=== PATIENT | male | born 1980 | race Caucasian/White ===

== ENCOUNTER 2016-07-23 20:59 | Emergency (ER) | payer MEDICAID ==
[~2016-07-23] VITALS: Ht 177.8 cm; Wt 60.0 kg
[~2016-07-23 20:59] MED LIST: AMOX500T PO; FOLI-17 PO; FURO-92 PO; MAGN400T7 PO; MULT1TAB60 PO; NICO1PAT10 TD; NITR100C6 PO; OMEP-110 PO; PRED5TAB PO; RIFA550T PO; SPIR50TA2 PO; THIA100T10 PO
[2016-07-23] MEDS ORDERED: PLEASE ENTER HEIGHT AND WEIGHT MC SCH (21:30)
[2016-07-23] MEDS ORDERED: MAALOX/HYOSCYAMINE/LIDOCAINE 45 ML BOTTLE PO ONE (21:30)
[2016-07-23] MEDS ORDERED: ONDANSETRON ODT 4 MG PO ONE (21:30)
[2016-07-23 21:36] LABS: ASPARTATE AMINO TRANSFERASE 191 U/L (15-37); BLOOD UREA NITROGEN 9 mg/dL (7-18)
[2016-07-23] MEDS ORDERED: MAALOX/HYOSCYAMINE/LIDOCAINE 45 ML BOTTLE ONE (22:21)
[2016-07-23] MEDS ORDERED: ONDANSETRON ODT 4 MG ONE (22:22)
[2016-07-24 03:07] VITALS: BP 122/68
== END 2016-07-24 03:09 | disposition home or self-care (01) ==
LOC: ED 22:46
DX: R10.13 Epigastric pain (principal); K29.20 Alcoholic gastritis without bleeding; F10.20 Alcohol dependence, uncomplicated; Z72.89 Other problems related to lifestyle; F17.210 Nicotine dependence, cigarettes, uncomplicated; D69.6 Thrombocytopenia, unspecified
CPT/HCPCS: 36415; 80053; 80307; 83690; 85025; 99284; Q0162

== ENCOUNTER 2016-08-31 20:55 | Emergency (ER) | payer MEDICAID ==
[~2016-08-31] VITALS: Ht 167.6 cm; Wt 73.0 kg
[2016-09-01 02:14] VITALS: BP 133/87
== END 2016-09-01 02:16 | disposition home or self-care (01) ==
LOC: ED 21:24
DX: F10.120 Alcohol abuse with intoxication, uncomplicated (principal); I10 Essential (primary) hypertension; K75.9 Inflammatory liver disease, unspecified; I95.9 Hypotension, unspecified; D69.6 Thrombocytopenia, unspecified
CPT/HCPCS: 99283

== ENCOUNTER 2016-11-14 01:17 | Emergency (ER) | payer MEDICAID ==
[~2016-11-14] VITALS: Ht 170.2 cm; Wt 65.0 kg
[~2016-11-14 01:17] MED LIST changes: -RIFA550T PO; +RIFA550T4 PO
[2016-11-14 01:25] VITALS: BP 106/66
== END 2016-11-14 05:06 | disposition home or self-care (01) ==
LOC: ED 02:25
DX: F10.129 Alcohol abuse with intoxication, unspecified (principal); I10 Essential (primary) hypertension
CPT/HCPCS: 99283

== ENCOUNTER 2018-08-31 22:17 | Emergency (ER) | payer MEDICAID ==
[~2018-08-31] VITALS: Ht 152.4 cm; Wt 55.3 kg
[~2018-08-31 22:17] MED LIST changes: +NICO-485 TD; -NICO1PAT10 TD; -SPIR50TA2 PO; +SPIR50TA4 PO
--- NOTE | 2018-08-31 22:32 | NUR ---
FIRST CONTACT WITH PT. PT HERE STATING THAT HE HAS BEEN HAVING MAJOR STOMACH ACHES FOR TWO MONTHS, STATES THAT HE WAS VOMITING, DRANK 10 BEERS TONIGHT. STATES THAT HE HAS BEEN UNABLE TO HOLD DOWN ANYTHING FOR SEVERAL MONTHS, WAS ABLE TO KEEP BEERS DOWN BUT THAT WAS "HARD". PT'S AOX4. RESPS EVEN AND UNLABORED. BP/SPO2 MONITORS IN PLACE. CALL LIGHT WITHIN REACH.
[2018-08-31] MEDS ORDERED: ONDANSETRON 2MG/ML, 2ML ONE (22:58)
[2018-08-31] MEDS ORDERED: LORazepam 2 MG/ML, 1ML ONE (22:58)
[2018-08-31] MEDS ORDERED: THIAMINE 100 MG/ML, 2ML ONE (22:58)
[2018-08-31] MEDS ORDERED: LACTATED RINGERS 1,000 ML IVBOLUS ONE (23:00)
[2018-08-31] MEDS ORDERED: SODIUM CHLORIDE FLUSH 10ML SYR IVF ONE (23:00)
[2018-08-31] MEDS ORDERED: THIAMINE 100 MG/ML, 2ML IM ONE (23:00)
[2018-08-31] MEDS ORDERED: LORazepam 2 MG/ML, 1ML IVPush ONE (23:00)
[2018-08-31] MEDS ORDERED: ONDANSETRON 2MG/ML, 2ML IVPush ONE (23:00)
[2018-08-31 23:08] LABS: BASOPHILS # (AUTO) 0.03 x10^3/uL (0-0.1); BASOPHILS % (AUTO) 1 % (0-1); EOSINOPHILS # (AUTO) 0.03 x10^3/uL (0-0.4); EOSINOPHILS % (AUTO) 1 % (1-7); LYMPHOCYTES # (AUTO) 1.52 x10^3/uL (1-3.4); LYMPHOCYTES % (AUTO) 30 % (22-44); MD NO; MEAN CORPUSCULAR HEMOGLOBIN 33.6 pg (27.5-34.5); MEAN CORPUSCULAR HGB CONC 33.3 g/dL (33.2-36.2); MEAN CORPUSCULAR VOLUME 100.8 fL (81-97); MEAN PLATELET VOLUME 8.9 fL (7.4-10.4); MONOCYTES # (AUTO) 0.66 x10^3/uL (0.2-0.8); MONOCYTES % (AUTO) 13 % (2-9); NEUTROPHILS # (AUTO) 2.87 x10^3/uL (1.8-6.8); NEUTROPHILS % (AUTO) 56 % (42-75); PLATELET COUNT 160 x10^3/uL (130-400); RED CELL DISTRIBUTION WIDTH 18.9 % (9.4-14.8)
--- NOTE | 2018-08-31 23:14 | NUR ---
MED ORDERED FROM PHARMACY NOW.
--- NOTE | 2018-08-31 23:14 | NUR ---
EKG DONE BY EMT
[2018-08-31 23:20] LABS: ALANINE AMINOTRANSFERASE 85 U/L (12-78); ALBUMIN 3.4 g/dL (3.4-5.0); ANION GAP 12 mmol/L (5-15); CALCIUM 8.2 mg/dL (8.5-10.1); CHLORIDE 85 mmol/L (98-107); CREATININE 0.93 mg/dL (0.7-1.3)
[2018-08-31 23:22] LABS: ALKALINE PHOSPHATASE 100 U/L (45-117); TOTAL PROTEIN 8.3 g/dL (6.4-8.2)
[2018-08-31 23:28] VITALS: BP 127/77
--- NOTE | 2018-08-31 23:28 | NUR ---
PT MEDICATED PER EMAR. PT TOLERATED WELL.
--- NOTE | 2018-08-31 23:40 | NUR ---
LR INFUSING AT THIS TIME. PT TOLERATED WELL.
== END 2018-09-01 00:16 | disposition home or self-care (01) ==
LOC: ED 22:30
DX: F10.220 Alcohol dependence with intoxication, uncomplicated (principal); R11.2 Nausea with vomiting, unspecified; E87.1 Hypo-osmolality and hyponatremia; R94.5 Abnormal results of liver function studies; Y90.9 Presence of alcohol in blood, level not specified
CPT/HCPCS: 36415; 80053; 83690; 85025; 93005; 96361; 96372; 96374; 96375; 99284; J2060; J2405; J3411; J7120

== ENCOUNTER 2018-09-20 07:48 | Emergency (ER) | payer MEDICAID ==
[~2018-09-20] VITALS: Ht 152.4 cm; Wt 53.9 kg
[2018-09-20 14:20] VITALS: BP 101/63
== END 2018-09-20 14:30 | disposition home or self-care (01) ==
LOC: ED 10:17
DX: K52.9 Noninfective gastroenteritis and colitis, unspecified (principal); E86.9 Volume depletion, unspecified; E87.6 Hypokalemia; I10 Essential (primary) hypertension; K21.9 Gastro-esophageal reflux disease without esophagitis; F10.220 Alcohol dependence with intoxication, uncomplicated; Y90.0 Blood alcohol level of less than 20 mg/100 ml; Z87.891 Personal history of nicotine dependence
CPT/HCPCS: 36415; 80053; 80307; 82140; 83690; 85025; 93005; 96361; 96372; 96374; 96375; 99284; J2405; J3411; J3490; J7030

== ENCOUNTER 2018-09-28 15:43 | Emergency (ER) | payer MEDICAID ==
[~2018-09-28] VITALS: Ht 162.6 cm; Wt 55.0 kg
[2018-09-28] MEDS ORDERED: SODIUM CHLORIDE 0.9% 1,000ML IVBOLUS ONE (16:30)
[2018-09-28] MEDS ORDERED: ONDANSETRON 2MG/ML, 2ML IVPush ONE (16:30)
[2018-09-28] MEDS ORDERED: SODIUM CHLORIDE FLUSH 10ML SYR IVF ONE (16:30)
[2018-09-28 16:39] LABS: ALANINE AMINOTRANSFERASE 97 U/L (12-78); ALBUMIN 3.2 g/dL (3.4-5.0); ANION GAP 10 mmol/L (5-15); CALCIUM 7.6 mg/dL (8.5-10.1); CHLORIDE 108 mmol/L (98-107); CREATININE 0.76 mg/dL (0.7-1.3)
[2018-09-28 16:42] LABS: ALKALINE PHOSPHATASE 111 U/L (45-117); BILIRUBIN,TOTAL 0.7 mg/dL (0.2-1.0); TOTAL PROTEIN 7.6 g/dL (6.4-8.2)
--- NOTE | 2018-09-28 16:48 | NUR ---
C/O ABDOMINAL PAIN AND NAUSEA. IV FLUIDS INFUSING AND TO BE MEDICATED FOR NAUSEA.
[2018-09-28] MEDS ORDERED: ONDANSETRON 2MG/ML, 2ML ONE (16:51)
[2018-09-28 16:56] LABS: MEAN CORPUSCULAR HEMOGLOBIN 34.1 pg (27.5-34.5); MEAN CORPUSCULAR HGB CONC 33.6 g/dL (33.2-36.2); MEAN CORPUSCULAR VOLUME 101.3 fL (81-97); PLATELET COUNT 89 x10^3/uL (130-400); RED BLOOD COUNT 3.62 x10^6/uL (4.38-5.82); RED CELL DISTRIBUTION WIDTH 17.6 % (9.4-14.8)
[2018-09-28 17:18] LABS: BASOPHILS # (AUTO) 0.03 x10^3/uL (0-0.1); BASOPHILS % (AUTO) 1 % (0-1); EOSINOPHILS # (AUTO) 0.04 x10^3/uL (0-0.4); EOSINOPHILS % (AUTO) 1 % (1-7); LYMPHOCYTES # (AUTO) 1.46 x10^3/uL (1-3.4); LYMPHOCYTES % (AUTO) 40 % (22-44); MD MORPH REVIEW ONLY; MONOCYTES # (AUTO) 0.35 x10^3/uL (0.2-0.8); MONOCYTES % (AUTO) 10 % (2-9); NEUTROPHILS # (AUTO) 1.76 x10^3/uL (1.8-6.8); NEUTROPHILS % (AUTO) 49 % (42-75)
[2018-09-28 17:26] LABS: ANISOCYTOSIS 1+
[2018-09-28 17:28] LABS: <PLATELET ESTIMATE> DECREASED; <PLT MORPHOLOGY> NORMAL PLT MORPH
--- NOTE | 2018-09-28 18:05 | NUR ---
PT STILL UNABLE TO URINATE. BLADDER SCAN SHOWS 528 ML. TO HELP PT STAND AND SEE IF URINE CAN BE OBTAINED
--- NOTE | 2018-09-28 19:00 | NUR ---
UOB WITH ASSISTANCE TO COMMODE. FORMED STOOL. UNABLE TO URINATE. MARTÍNEZ CATH PLACED WITH 550 URINE OUTPUT OBTAINED. CATH REMOVED.
[2018-09-28 19:02] LABS: MICROSCOPIC NOT IND
--- NOTE | 2018-09-28 19:05 | NUR ---
REPORT TO SYLVIA KIDD
[2018-09-28 19:07] LABS: CULTURE INDICATED? NO
--- NOTE | 2018-09-28 19:59 | NUR ---
PT SLEEPING. VSS. PT HAS NO NEEDS AT THIS TIME. CALL LIGHT IN REACH
--- NOTE | 2018-09-28 20:10 | NUR ---
ATTEMPTED TO AMBULATE PT. PT UNABLE TO AMBULATE. WILL CONTINUE TO MONITOR.
--- NOTE | 2018-09-28 21:14 | NUR ---
PT SLEEPING. VSS. PT IN NAD. EVEN RISE AND FALL OF CHEST OBSERVED. CALL LIGHT IN REACH
[2018-09-28 22:15] VITALS: BP 104/71
--- NOTE | 2018-09-29 00:10 | NUR ---
Patient given discharge instructions and they have confirmed that they understand the instructions. Patient ambulatory with steady gait.
== END 2018-09-29 00:16 | disposition home or self-care (01) ==
LOC: ED 19:21
DX: R10.84 Generalized abdominal pain (principal); F10.120 Alcohol abuse with intoxication, uncomplicated; I10 Essential (primary) hypertension; R19.7 Diarrhea, unspecified; R11.10 Vomiting, unspecified
CPT/HCPCS: 36415; 80053; 80307; 81003; 83690; 85025; 96361; 96374; 99283; J2405; J7030

== ENCOUNTER 2018-10-10 18:18 | Emergency (ER) | payer MEDICAID ==
[~2018-10-10] VITALS: Ht 175.3 cm; Wt 75.0 kg
[2018-10-11 00:33] VITALS: BP 96/64
== END 2018-10-11 00:36 | disposition home or self-care (01) ==
LOC: ED 19:25
DX: S09.90XA Unspecified injury of head, initial encounter (principal); R41.82 Altered mental status, unspecified; F10.221 Alcohol dependence with intoxication delirium; G92 Toxic encephalopathy; W19.XXXA Unspecified fall, initial encounter; Y93.89 Activity, other specified; Y92.410 Unspecified street and highway as the place of occurrence of the external cause; Y99.8 Other external cause status
CPT/HCPCS: 70450; 99284